=== PATIENT | male | born 1970 | race Hispanic/Latino ===

== ENCOUNTER 2017-01-06 06:50 | Emergency (ER) | payer BC ==
[2017-01-06 07:08] VITALS: RESP 18
[2017-01-06] MEDS ORDERED: Sodium Chloride 0.9% 1,000 ML IV STA (07:35)
[2017-01-06 08:11] LABS: BASO # 0.1 K/uL (0.0-0.2); BASO % 0.4 % (0.0-2.0); EOS % 0.1 % (0.0-4.0); HEMATOCRIT 50.5 % (35.0-51.0); LYMPH # 1.9 K/uL (1.0-4.3); LYMPH % 14.5 % (20.0-40.0); MEAN CELL VOLUME 89.1 fl (80.0-94.0); MEAN CORPUSCULAR HEMOGLOBIN 30.3 pg (27.0-31.0); MEAN PLATELET VOLUME 8.3 fl (7.2-11.7); MONO # 0.9 K/uL (0.0-0.8); MONO % 6.7 % (0.0-10.0); NEUT # 10.1 K/uL (1.8-7.0); NEUT % 78.3 % (50.0-75.0); NRBC % 0.2 % (0.0-0.0); RED CELL DISTRIBUTION WIDTH 12.6 % (11.5-14.5); WHITE BLOOD COUNT 12.9 K/uL (4.8-10.8)
[2017-01-06 08:14] LABS: ALB/GLOB RATIO 1.4 (1.0-2.1); ALCOHOL SERUM < 10 mg/dl (0-10); ALKALINE PHOSPHATASE 84 U/L (38-126); ALT/SGPT 98 U/L (21-72); AST/SGOT 56 U/L (17-59); BILIRUBIN,TOTAL 0.5 mg/dl (0.2-1.3); BLOOD UREA NITROGEN 11 mg/dl (9-20); CALCIUM 9.2 mg/dL (8.4-10.2); CARBON DIOXIDE 26 mmol/L (22-30); CHLORIDE 102 mmol/L (98-107); GFR AFRICAN-AMERICAN > 60; GLUCOSE,RANDOM 112 mg/dL (75-110); POTASSIUM 3.7 MMOL/L (3.6-5.0); SODIUM 143 mmol/l (132-148)
--- NOTE | 2017-01-06 08:27 | ED PDOC ---
HPI: Psych/Substance Abuse Time Seen by Provider: 01/06/17 07:09 Chief Complaint (Nursing): Substance Abuse Chief Complaint (Provider): Substance Abuse History Per: Patient History/Exam Limitations: no limitations Additional Complaint(s): 46 y/o male presents to the emergency department with a complaint of feeling anxious and uneasy after doing cocaine and drinking alcohol. Reports last dose was around 0300 am and was feeling dizzy (had resolved since). States he went home, took 1 and 1/2 of 0.5 mg Valium pills prescribed to him when he underwent back surgery, and took a shower but presented to the emergency department because it did not help or make him feel better. Denies nausea, vomiting, headache, chest pain, shortness of breath, palpitations, numbness, tingling, suicidal ideation, and homicidal ideation. Past Medical History Reviewed: Historical Data, Nursing Documentation, Vital Signs Vital Signs: Last Vital Signs Temp 98.6 F 01/06/17 07:00 Pulse 118 H 01/06/17 07:00 Resp 18 01/06/17 07:00 BP 182/98 H 01/06/17 07:00 Pulse Ox 97 01/06/17 07:00 - Medical History Other PMH: back pain - Surgical History Surgical History: Back Surgery - Family History Family History: States: Unknown Family Hx - Social History Current smoker - smoking cessation education provided: No Alcohol: Social Drugs: Cannabis, Cocaine - Home Medications Home Medications: Ambulatory Orders Medication Instructions Recorded Escitalopram [Lexapro] 1 tab PO DAILY 01/06/17 - Allergies Allergies/Adverse Reactions: Allergies Allergy/AdvReac Type Severity Reaction Status Date / Time No Known Allergies Allergy Verified 01/06/17 07:08 Review of Systems ROS Statement: Except As Marked, All Systems Reviewed And Found Negative Cardiovascular: Negative for: Chest Pain, Palpitations Respiratory: Negative for: Shortness of Breath Gastrointestinal: Negative for: Nausea, Vomiting Neurological: Positive for: Dizziness (Had resolved since). Negative for: Numbness (or tingling), Headache Psych: Positive for: Anxiety (Feeling uneasy). Negative for: Suicidal ideation (or homicidal ideation) Physical Exam - Reviewed Nursing Documentation Reviewed: Yes Vital Signs Reviewed: Yes - Physical Exam Appears: Positive for: Non-toxic, No Acute Distress Head Exam: Positive for: ATRAUMATIC, NORMAL INSPECTION, NORMOCEPHALIC Skin: Positive for: Normal Color, Warm, Dry Eye Exam: Positive for: Normal appearance, EOMI, PERRL ENT: Positive for: Normal ENT Inspection. Negative for: Pharyngeal Erythema Neck: Positive for: Normal, Supple Cardiovascular/Chest: Positive for: Chest Non Tender, Tachycardia (With regular rhythm). Negative for: Edema, Murmur Respiratory: Positive for: Normal Breath Sounds. Negative for: Accessory Muscle Use, Respiratory Distress Gastrointestinal/Abdominal: Positive for: Normal Exam, Soft. Negative for: Tenderness Back: Positive for: Normal Inspection. Negative for: L CVA Tenderness, R CVA Tenderness Extremity: Positive for: Normal ROM. Negative for: Tenderness, Pedal Edema Neurologic/Psych: Positive for: Alert, cardiovascular surgical tech II-XII, Oriented (x3). Negative for : Motor/Sensory Deficits, Facial Droop - Laboratory Results Result Diagrams: 01/06/17 07:50 01/06/17 07:50 Interpretation Of Abn Labs: benzo and coccaine - ECG ECG: Positive for: Interpreted By Me, Viewed By Me ECG Rhythm: Positive for: Sinus Tachycardia O2 Sat by Pulse Oximetry: 97 (RA) Pulse Ox Interpretation: Normal - Progress ED Course And Treament: 1047: Stable. AAOx3. Pain free. Tolerated PO. Ambulated with no issues. Fu with pcp. Medical Decision Making Medical Decision Making: Time: 07:35 Initial Impression: Substance intake with alcohol Initial Plan: --EKG --Alcohol Serum --CMP --Troponin I --Ativan 1 mg IVp --Sodium Chloride 1L IV --Reevaluation Time: 07:50 --Positive: Benzodiazepine and Oth Cocaine Metabols Scribe Attestation: Documented by Sunita Hilliard, acting as a scribe for Bakari Carpenter MD. Provider Scribe Attestation: All medical record entries made by the Scribe were at my direction and personally dictated by me. I have reviewed the chart and agree that the record accurately reflects my personal performance of the history, physical exam, medical decision making, and the department course for this patient. I have also personally directed, reviewed, and agree with the discharge instructions and disposition. Disposition - Clinical Impression Clinical Impression: Adverse effect of cocaine - Patient ED Disposition Is Patient to be Admitted: No Counseled Patient/Family Regarding: Studies Performed, Diagnosis, Need For Followup - Disposition Referrals: [facility]Outside[facility] - 01/08/17 Disposition: Routine/Home Disposition Time: 10:48 Condition: STABLE Additional Instructions: Return if not better in 3 days. Instructions: Polysubstance Abuse (ED) Forms: [employer] (Pashto)
[2017-01-06 10:26] VITALS: BP 121/61; PULSE 99; TEMP 98
[2017-01-06 10:41] VITALS: O2SAT 97
--- NOTE | 2017-01-08 11:02 | CARD ---
APPROVED REPORT EKG Measurement Heart [id number] <Conclusion> Sinus tachycardia Nonspecific ST and T wave abnormality Abnormal ECG
== END 2017-01-06 11:08 | disposition home or self-care (01) ==
LOC: H.ER 06:50
DX: T40.5X1A Poisoning by cocaine, accidental (unintentional), initial encounter (principal)
CPT/HCPCS: 80053; 84484; 85025; 93005; 96374; 99284; G0480; J2060; J7040